=== PATIENT | female | born 1990 | race Caucasian/White ===

== ENCOUNTER 2021-12-23 08:48 | Emergency (ER) | payer MEDICAID, SELFPAY ==
[2021-12-23 08:49] VITALS: BP 137/87; PULSE 100; RESP 19; TEMP 36.6; O2SAT 100; BMI 43.0
--- NOTE | 2021-12-23 09:34 | ED_ITS ---
HPI - Back Pain/Injury General Chief Complaint: Back Pain/Injury Stated Complaint: muscle spasms in back Time Seen by Provider: 12/23/21 09:19 Source: patient Mode of arrival: ambulatory Limitations: no limitations History of Present Illness HPI Narrative: 31 yo female healthy here with one week of lower back pain with radiation to bilateral hips. Patient denies any fall. 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 No numbness or tingling or weakness in lower extremities. No numbness in the groin. No bowel or bladder incontinence. No fevers or chills. No previous back injury or or surgeries on her back. Related Data Previous Rx's Medication Instructions Recorded cyclobenzaprine 10 mg tablet 10 mg PO TID PRN muscle spasm #15 12/23/21 tabs ibuprofen 600 mg tablet 600 mg PO Q6H PRN pain #30 tabs 12/23/21 lidocaine 5 % topical patch 1 patch topical DAILY #15 ea 12/23/21 (Lidoderm) oxycodone 5 mg tablet 5 mg PO Q6H PRN pain #8 tabs 12/23/21 Allergies Allergy/AdvReac Type Severity Reaction Status Date / Time No Known Allergies Allergy Verified 12/23/21 09:54 Review of Systems Review of Systems: Yes all other systems are reviewed and are negative Constitutional: Constitutional: Reports no additional constitutional complaints, Denies body ache(s), Denies chills, Denies fever(s), Denies headache(s) and Denies weakness Eyes: Eyes: Reports no additional eye complaints and Denies change in vision ENT: Reports system reviewed and no additional complaints, except as documented, Denies dizziness, Denies headache(s), Denies nasal congestion, Denies nasal discharge and Denies neck pain Cardiovascular: Cardiovascular: Reports no additional cardiovascular complaints, Denies chest pain, Denies leg edema and Denies dyspnea Respiratory: Respiratory: Reports no additional respiratory complaints, Denies cough and Denies dyspnea Gastrointestinal: Gastrointestinal: Reports no additional gastrointestinal complaints, Denies abdominal pain, Denies diarrhea, Denies nausea and Denies vomiting Genitourinary: Genitourinary: Reports no additional female genitourinary complaints and Denies urinary incontinence Musculoskeletal: Musculoskeletal: Reports no additional musculoskeletal complaints, Reports back pain, Denies arthralgias, Denies joint swelling, Denies neck pain, Denies numbness and Denies tingling Integumentary/Breasts: Skin/Breast: Reports system reviewed and no additional complaints, except as docu and Denies rash Neurologic: Reports system reviewed and no additional complaints, except as documented, Denies Abnormal speech present, Denies dizziness, Denies headache(s), Denies numbness, Denies tingling and Denies weakness PMFSH Past Medical History Attestation statement: The following information was validated with the patient. Source: old records reviewed and nursing notes reviewed Social History Social History Advance Directives: No Advance Directives Information Provided: Yes Physical Exam Vital Signs: Vital Signs: Last Vital Signs Temp 98 F 12/23/21 08:49 Pulse 100 12/23/21 08:49 Resp 19 12/23/21 08:49 BP 137/87 12/23/21 08:49 Pulse Ox 100 12/23/21 08:49 O2 Del Method 12/23/21 08:49 BMI result Body Mass Index 43.0 Const: General: cooperative, healthy appearing, comfortable and no acute distress Orientation/consciousness: patient oriented x3 Limitations: no limitations HEENT: Head: Yes normal to inspection Ears: hearing grossly normal bilaterally General nose exam: Normal external nose present Face and sinus: Yes normal facial exam Mouth: Normal oral and palatal mucosa present Throat: Yes posterior oropharynx normal Eyes: General: appearance normal, both eyes and all related structures Pupils: Equal, round and reactive pupils present Neck: Neck: Yes normal visual inspection Chest: Chest palpation & inspection: normal inspection of the chest Resp: Effort & Inspection: normal respiratory effort Auscultation: clear to auscultation bilaterally Cardio: Rate: regular rate Rhythm: regular rhythm Peripheral pulses: Peripheral pulses 2+ throughout GI: Inspection: Yes normal to inspection Palpation (GI): Soft to palpation and nontender Auscultation: normal bowel sounds : General: Yes no CVA tenderness Back/Spine/Pelvis: Other: There is tenderness the bilateral soft tissue of the lumbar spine with no midline tenderness, step-offs or deformities. There is pain with flexion and extension of the lumbar spine. There is also pain with bilateral straight leg raise. Back: no CVA tenderness Thoracic/Lumbar Spine: thoracic and lumbar spine normal to inspection Skin: General skin exam: no rashes or lesions noted Neuro: General: patient oriented x3, moves all extremities, no focal motor deficits and normal sensation to monofilament Cranial nerves: Yes CN's II-XII intact bilaterally, Yes Equal, round and reactive pupils present, Yes Bilaterally intact EOM present, Yes Nystagmus not present, Yes Normal facial strength present and Yes Midline tongue present Cognition (Neuro): normal cognition Speech: No Abnormal speech present Gait exam (Neuro): Normal gait present Motor exam (neuro): 5/5 motor strength present throughout Sensory Exam: Normal double simultaneous stimulation for sensation Deep tendon reflexes (DTR's): Right patellar reflex intensity grade: 2+ and Left patellar reflex intensity grade: 2+ Extrem: General: Yes normal to inspection Course Course Course Narrative: Patient did receive 10 mg of oxycodone and some Tylenol and overall has some improvement of pain although it is not resolved. Ambulatory on discharge. I w ill discharge her home with some anti-inflammatories, medicated patches, muscle relaxants and pain medication. Reviewed worrisome signs and symptoms of when to return to the emergency room. Comfortable plan for discharge home. MDM - Back Pain/Injury MDM Narrative Medical decision making narrative: 31-year-old female here with low back pain for 1 week with precipitating reports of lots of heavy lifting and bending while working. No neurological deficits or red flag symptoms. No midline tenderness or trauma to suggest underlying fracture. Seems muscular. Will give Toradol IM, Valium p.o. and reassess -no history of IV drug abuse, immunocompromised state, reports of fever or neurological findings to suggest epidural abscess -no reports of saddle anesthesia, bowel or bladder incontinence, neurological finding suggest cord compression or cauda equina. -considered renal colic, pyelonephritis, AAA Medical Records Attestation: I reviewed the patient's medical records. Lab Data Attestation: I reviewed the patient's lab results. Discharge Plan Discharge Clinical Impression: Strain of lumbar region Patient Disposition: Home, Self-Care Instructions: Low Back Strain (ED) Additional Instructions: Heat to the back Gentle stretching No heavy lifting or bending Follow-up with your PCP for any persistent symptoms Return for incontinence of urine/stool, fever >100.4, numbness in the groin, numbness/tingling/weakness of lower extremities Prescriptions: New cyclobenzaprine 10 mg tablet 10 mg PO TID PRN (Reason: muscle spasm) Qty: 15 0RF ibuprofen 600 mg tablet 600 mg PO Q6H PRN (Reason: pain) Qty: 30 0RF lidocaine [Lidoderm] 5 % adhesive patch,medicated 1 patch topical DAILY Qty: 15 0RF Rx Instructions: leave on most painful area for up to 12 hrs oxycodone 5 mg tablet 5 mg PO Q6H PRN (Reason: pain) Qty: 8 0RF Rx Instructions: Partial Fill upon patient request. Referrals: Physician,Unknown J [Primary Care Provider] - Stand Alone Forms: Work/School Release Interventions: ED Discharge Assessment Last Done: 12/23/21 13:26 Discharge Date/Time: 12/23/21 13:27
[2021-12-23] MEDS: Ketorolac Tromethamine 60 MG/2 ML VIAL IM (09:57)
[2021-12-23] MEDS: diazePAM 2 MG TABLET PO (09:57)
[2021-12-23] MEDS: oxyCODONE HCl Immed Release 5 MG TABLET 10 MG PO (11:01)
[2021-12-23] MEDS: Acetaminophen 325 MG TABLET 975 MG PO (11:01)
== END 2021-12-23 13:27 | disposition home or self-care (01) ==
PROVIDERS: Emergency Provider Emergency Medicine
DX: M54.50 Low back pain, unspecified (principal); M25.552 Pain in left hip; M25.551 Pain in right hip; Z79.899 Other long term (current) drug therapy
CPT/HCPCS: 96372; 99283; 99284; J1885